=== PATIENT | male | born 1980 | race African-American/Black ===

== ENCOUNTER 2018-06-09 12:39 | Emergency (ER) | payer OTHER ==
[~2018-06-09] VITALS: Ht 195.6 cm; Wt 83.9 kg
[~2018-06-09 12:39] MED LIST: IBUPROFEN 600600 M1 PO; NAPROSYN500 MG PO; NORCO 5-325 TA1 EACH PO
[2018-06-09 12:59] LABS: URINE BILIRUBIN NEGATIVE (Negative); URINE BLOOD NEGATIVE (Negative); URINE CLARITY CLEAR; URINE COLOR YELLOW; URINE GLUCOSE-RANDOM* NEGATIVE (Negative); URINE KETONES NEGATIVE (Negative); URINE LEUKOCYTES-REFLEX NEGATIVE (Negative); URINE NITRITE-REFLEX NEGATIVE (Negative); URINE PROTEIN (DIPSTICK) NEGATIVE (Negative); URINE SPECIFIC GRAVITY <= 1.005 (1.005-1.035); URINE UROBILINOGEN 0.2 E.U./dl (0.2-1.0)
[2018-06-09] MEDS ORDERED: CONDYLOX3.5 GM TOP (13:44)
[2018-06-09 14:19] VITALS: BP 158/64
== END 2018-06-09 14:20 | disposition home or self-care (01) ==
LOC: ER 12:39
PROVIDERS: Physician Assistant
DX: B08.1 Molluscum contagiosum (principal); N50.89 Other specified disorders of the male genital organs; F17.210 Nicotine dependence, cigarettes, uncomplicated

== ENCOUNTER 2020-02-24 14:51 | Emergency (ER) | payer OTHER ==
[~2020-02-24] VITALS: Ht 195.6 cm; Wt 81.7 kg
[~2020-02-24 14:51] MED LIST changes: +CONDYLOX3.5 GM TOP
[2020-02-24] MEDS ORDERED: CONDYLOX3.5 GM TOP (15:20)
[2020-02-24 15:40] VITALS: BP 139/87
== END 2020-02-24 16:00 | disposition home or self-care (01) ==
LOC: ER 14:51
DX: R21 Rash and other nonspecific skin eruption (principal); F17.210 Nicotine dependence, cigarettes, uncomplicated; Z79.899 Other long term (current) drug therapy

== ENCOUNTER 2020-07-01 14:07 | Emergency (ER) | payer OTHER ==
[~2020-07-01] VITALS: Ht 195.6 cm; Wt 85.7 kg
[2020-07-01 15:00] LABS: ABSOLUTE NEUTROPHILS 7.2 thou/uL (1.4-8.2); HEMATOCRIT 41.9 % (42.0-52.0); LYMPHOCYTES 23.1 % (24.0-44.0); MCH 29.5 pg (26.0-34.0); MCHC 33.4 g/dL (28.0-37.0); MCV 88.3 fL (80.0-100.0); MONOCYTES 7.7 % (1.0-8.0); PLATELET COUNT 222 thou/uL (150-400); POLYS 66.2 % (36.0-66.0); RBC 4.74 mil/uL (4.50-6.00); RDW 13.6 % (10.5-14.5); WBC 10.9 thou/uL (4.0-11.0)
[2020-07-01 15:21] LABS: CALCIUM 9.1 mg/dL (8.5-10.1); CREATININE 1.1 mg/dL (0.7-1.3); POTASSIUM 3.5 mmol/L (3.5-5.1)
[2020-07-01 15:26] LABS: ALBUMIN 3.9 g/dL (3.4-5.0); TOTAL BILIRUBIN 0.5 mg/dL (0.2-1.0); TOTAL PROTEIN 7.8 g/dL (6.4-8.2)
[2020-07-01] MEDS ORDERED: PREDNISONE 20 M20 M1 PO (15:59)
[2020-07-01 16:34] VITALS: BP 126/98
== END 2020-07-01 16:35 | disposition home or self-care (01) ==
LOC: ER 14:07
PROVIDERS: Physician Assistant
DX: R22.33 Localized swelling, mass and lump, upper limb, bilateral (principal); M19.90 Unspecified osteoarthritis, unspecified site; F17.210 Nicotine dependence, cigarettes, uncomplicated; Z79.899 Other long term (current) drug therapy